=== PATIENT | female | born 1980 | race Caucasian/White ===

== ENCOUNTER 2019-06-06 19:43 | Inpatient (IN) | payer MEDICAID ==
--- NOTE | 2019-06-06 20:11 | PDOC.FPRHP ---
- History of Present Illness Chief Complaint: Fever and malaise History of Present Illness: Ms. Pena is a 38 yoF who presents to the ED after the intermediate ([facility]) noted she had a fever this afternoon and sent her to the ED in [place]. Upon arrival, there was concern for sepsis and she was transferred to [place] ED. Her symptoms started this morning with general malaise. At lunch she states she vomited once. She denies other symptoms. She has noted that the wound on her LLE has been draining more than usual. The wound is chronic in nature, was last debrided in August. During that hospitalization she became septic and was intubated. As a result, and due to debility, she has been living in a intermediate since then. She states she is ambulatory. ED Course: [place]: Vancomycin 2g, K-dur 40meq, Zosyn 4.5g, 2L NS, Zofran 4mg, Tylenol 1000mg - Allergies/Adverse Reactions Allergies Allergy/AdvReac Type Severity Reaction Status Date / Time No Known Allergies Allergy Verified 06/07/19 01:01 - Home Medications Medication Instructions Recorded Confirmed Type Amlodipine [Norvasc] 5 mg PO DAILY 06/07/19 06/07/19 History Apixaban [Eliquis] 5 mg PO BID 06/07/19 06/07/19 History Carvedilol [Coreg] 25 mg PO BID 06/07/19 06/07/19 History Escitalopram Oxalate [Lexapro] 20 mg PO DAILY 06/07/19 06/07/19 History Potassium Chloride [K-Dur] 20 meq PO BID 06/07/19 06/07/19 History Torsemide 50 mg PO HS 06/07/19 06/07/19 History Torsemide 100 mg PO QAM 06/07/19 06/07/19 History - History PMHx: H/o dvt CHF HTN HLD Morbid obesity Chronic LLE wound PSHx: Surgical debridement of LLE FHx: Non-contributory Social: Denies alcohol, tobacco, or illicit drug use. - Review of Systems General: reports: fever/chills, weight/appetite/sleep changes. denies: night sweats, fatigue Eyes: denies: eye pain ENT: denies: nasal congestion, rhinorrhea Respiratory: denies: cough, congestion, shortness of breath Cardiovascular: denies: chest pain, palpitation, edema Gastrointestinal: reports: nausea, vomiting. denies: diarrhea, constipation Genitourinary: denies: incontinence, dysuria, polyuria Skin: reports: lesions. denies: rashes Musculoskeletal: denies: pain, tenderness Neurological: denies: numbness, syncope, weakness - Vital signs BP: [] HR: [] RR: [] Tmax: [] Pox: []% on [] Wt: [] - Physical Exam Constitutional: NAD, awake, alert and oriented HEENT: normocephalic and atraumatic, PERRLA, EOMI, conjunctiva clear, grossly normal vision, grossly normal hearing, MMM Neck: supple, trachea midline Heart: RRR, normal S1/S2, no murmurs/rubs/gallops Lungs: CTAB, no respiratory distress, good air movement Abdomen: soft, non-tender, bowel sounds present Musculoskeletal: normal structure, normal tone Neurological: no focal deficit, CN II-XII intact Skin: capillary refill <2 seconds -Skin: LLE wound Heme/Lymphatic: no unusual bruising or bleeding, no purpura, no petechia Psychiatric: normal mood and affect, good judgment and insight, intact recent and remote memory FMR H&P: Results - Labs Lab results: Laboratory Tests 06/06/19 06/06/19 06/06/19 15:46 15:46 15:46 WBC 5.8 RBC 4.67 Hgb 12.7 Hct 41.1 Plt Count 144 Sodium 140 Potassium 3.0 L Chloride 97 L Carbon Dioxide 25 Anion Gap 21 H BUN 24 H Creatinine 1.99 H Lactic Acid 3.8 H 06/06/19 06/06/19 06/06/19 18:20 20:40 23:14 WBC RBC Hgb Hct Plt Count Sodium Potassium Chloride Carbon Dioxide Anion Gap BUN Creatinine Lactic Acid 2.6 H 2.3 H 1.7 Laboratory Tests 06/06/19 15:39 Urine Nitrite Negative Ur Leukocyte Esterase Negative Urine WBC 0-3 Urine Bacteria Rare-Few - Radiology Interpretation Chest x-ray Status: report reviewed by me (No acute cardiopulmonary process) FMR H&P: A/P - Plan Sepsis 2/2 LLE cellulitis - IV Vancomycin and Zosyn - s/p 2L NS. LR @ 175 ml/hr tonight. Consider slowing down tomorrow if clinically improved. - BP and VSS, sepsis without septic shock. - wound care consulted CHF - Hold diuretic today due to sepsis. - Watch fluids closely, consider restarting diuretics tomorrow if clinically improved. HTN, HLD - continue home medications H/o dvt - Continue eliquis for DVT prophylaxis Disposition/LOS: Dispo: Stable VTE: Eliquis IVF: LR @ 175 Code: Full FMR H&P: Upper Level - Plan Date/Time: 06/06/192004 PCP: Angie HPI: This is a 38 yo F who comes in from [facility] with chief complaint of vomiting, she was found to be septic likely from LLE cellulitus. Vomiting started earlier today per intermediate staff. She was admitted to intermediate for continued care of LLE cellulitus. She states she has no pain at this time. She thinks the LLE has had more drainage for a few days now. REVIEW OF SYSTEMS: Gen: + fever, no chills, or sweats Neuro: no numbness/tingling, no weakness, denies headache Eyes: no visual changes ENT: no hearing changes, no sore throat, no runny nose Resp: no cough, no SOB, no wheeze Card: denies chest pain, no palpitations GI: no N/V/D, no abdominal pain : no dysuria, no hematuria MSK: no myalgias, no joint pain/stiffness Skin: no rash, no erythema PHYSICAL EXAMINATION: General: NAD, alert and oriented x3, flat affect HEENT: PERRLA, EOMI, normal sclera, oropharynx without erythema or exudate Neck: Supple. Full ROM. Heart/Cardiovascular System: RRR, Cap refill < 3 seconds, no rub, no murmur Lungs/Respiratory System: clear to auscultation bilaterally. No increased work of breathing. Room air. Abdomen/Gastro-Intestinal System: no abdominal tenderness, normal bowel sounds, no masses, no organomegaly Extremities: Warm extremities. No cyanosis or edema. Neuro: No gross deficits appreciated. CN 2-12 grossly intact Psychiatry: Awake, Alert and cooperative with exam Skin: Mild oozing from LLE wound, has been previously debrided, erythema surrounding Musculoskeletal: Full ROM A/P: # Sepsis 2/2 LLE cellulitis - WBC 5.8, Tmax 103.8, BP 104/75, Pmax 117, pulse improved after fluid resuscitation - LA 3.8 -> 2.6 - start vanc, zosyn, cultures taken - wound care # CHF not in exacerbation - Hold torsemide, caution with fluid resuscitation - Initial rate at 175ml 2/2 sepsis, once lactic improved fluids stopped # NOHEMI - Cr 1.99, no labs available for comparison # Bipolar - Flat affect, lives at intermediate apparently for care of LLE wound # HTN, HLD, Hx of DVT - home meds Fluids: as above Code status: full PPx: eliquis Dispo: 1-2 days
[2019-06-06] MEDS ORDERED: Ondansetron ODT 4 MG TAB PO PRN (20:25)
[2019-06-06] MEDS ORDERED: SODIUM CHLORIDE 0.9% IVPB SCH (21:00)
[2019-06-06] MEDS ORDERED: VANCOMYCIN HCL IVPB SCH (21:00)
[2019-06-06 23:39] LABS: Lactic Acid 1.7 mmol/L (0.5-2.2)
[2019-06-07] MEDS ORDERED: Piperacillin/Tazobactam 3.375 GM in Sodium Chloride 0.9% 100 ML IVPB SCH (00:45)
[2019-06-07] MEDS ORDERED: Vancomycin HCl 1 GM in Premix Bag 1 BAG IVPB SCH (00:45)
[2019-06-07 01:00] VITALS: BMI 100.3
[2019-06-07] MEDS ORDERED: Nystatin Powder 15 GM BOT TOP PRN (02:09)
[2019-06-07] MEDS: Acetaminophen 325 MG TAB PO PRN (02:17)
[2019-06-07] MEDS: Piperacillin/Tazobactam 2.25 GM in Sodium Chloride 0.9% 100 ML IVPB SCH ×4 (02:17→20:10)
[2019-06-07] MEDS: Lactated Ringer's 1,000 ML IV SCH ×4 (02:18→09:03)
[2019-06-07] MEDS ORDERED: Lactated Ringer's 1,000 ML IV SCH ×2 (04:45→08:45)
[2019-06-07 06:20] LABS: Anion Gap 12 mmol/L (10-20); BUN (Urea Nitrogen) 29 mg/dL (7.0-18.7); Calc. Creatinine Clearance 76 mL/min (70-130); Calcium 8.5 mg/dL (7.8-10.44); Carbon Dioxide 26 mmol/L (22-29); Chloride 100 mmol/L (98-107); Estimated GFR-MDRD 22; Glucose 106 mg/dL (70-105); Sodium 135 mmol/L (136-145)
[2019-06-07 06:22] LABS: Anisocytosis SLIGHT = 6-15 cells (100X) (0-5/hpf); Band 30 % (5-11); Hemoglobin 10.4 g/dL (12.0-16.0); Lymphocytes 8 % (21-51); MDiff Complete? YES; Mean Corpuscular HGB CONC 33.2 g/dL (32.0-36.0); Mean Corpuscular Hemoglobin 28.7 pg (27.0-31.0); Mean Corpuscular Volume 86.5 fL (78.0-98.0); Mean Platelet Volume 10.2 fL (7.4-10.4); Monocytes 3 % (0-10); Neutrophil 59 % (42-75); Platelet Count 114 thou/uL (130-400); Platelet Morphology Comment Appears Adequate; RBC Distribution Width 15.8 % (11.5-14.5); Red Blood Cell (RBC) Count 3.64 mill/uL (4.20-5.40); White Blood Cell (WBC) Count 14.8 thou/uL (4.8-10.8)
[2019-06-07 06:25] LABS: Potassium 2.8 mmol/L (3.5-5.1)
--- NOTE | 2019-06-07 06:28 | PDOC.FM ---
- Subjective Subjective: Pt is sleeping w/ BIPAP on this AM. She usually requires BIPAP at night. Upon waking, pt denied pain. Reports she takes lexapro for depression. Says she ambulates normally without wheelchair or walker. Has wet towel on head for fevers she had overnight. - Objective MAR Reviewed: Yes Vital Signs & Weight: Vital Signs (12 hours) Temp Pulse Resp BP BP Pulse Ox 06/07/19 05:38 101.3 F H 06/07/19 04:00 102.6 F H 92 20 108/70 97 06/07/19 01:55 98 06/07/19 00:59 101.2 F H 99 20 103/69 96 Weight Weight 155.5 kg Result Diagrams: 06/07/19 05:39 06/07/19 05:39 Phys Exam - Physical Examination Constitutional: NAD difficult to auscultate while pt on BIPAP Cardiovascular: RRR, no significant murmur, no rub Gastrointestinal: soft, non-tender (obese) Musculoskeletal: edema present (1+ pitting on RLE, nonpitting edema, erythema, and swelling of LLE. Wound wrapped and not disturbed. Wound photos reviewed. ) Neurological: non-focal Dx/Plan (1) Left leg cellulitis Code(s): L03.116 - CELLULITIS OF LEFT LOWER LIMB Status: Acute (2) History of DVT (deep vein thrombosis) Code(s): Z86.718 - PERSONAL HISTORY OF OTHER VENOUS THROMBOSIS AND EMBOLISM Status: Acute (3) CHF (congestive heart failure) Code(s): I50.9 - HEART FAILURE, UNSPECIFIED Status: Acute (4) HTN (hypertension) Code(s): I10 - ESSENTIAL (PRIMARY) HYPERTENSION Status: Acute (5) Hyperlipidemia Code(s): E78.5 - HYPERLIPIDEMIA, UNSPECIFIED Status: Acute (6) Sepsis Code(s): A41.9 - SEPSIS, UNSPECIFIED ORGANISM Status: Acute (7) Morbid obesity Code(s): E66.01 - MORBID (SEVERE) OBESITY DUE TO EXCESS CALORIES Status: Acute (8) group home resident Code(s): Z59.3 - PROBLEMS RELATED TO LIVING IN RESIDENTIAL INSTITUTION Status : Acute - Plan Plan: 38-year-old female who has been in group home since August when she had debridement of LLE chronic wound, admitted for: Sepsis 2/2 LLE cellulitis - no septic shock, fluid resuscitation w/ 2L and fluids w/ 175 mL/hr initially - lactic acid downtrended - start vanc, zosyn (day 1 today) cultures pending - wound care consulted Hypokalemia Hypomagnesemia - monitoring, will replete orally Normocytic Anemia - Hgb 10.4. - Order anemia studies: iron, ferritin, RBC folate, B12, TIBC, smear CHF, not in exacerbation -Held torsemide, caution with fluid resuscitation -Initial rate at 175ml 2/2 sepsis, once lactic improved, fluids were stopped. -will continue to assess pt clinically because more fluid resuscitation is needed. Due to her weight, used ideal body weight for maintenance fluid rate. MIVF is 85 mL/hr, so will restart LR at 100mL/hr and continue to monitor closely. NOHEMI vs CKD - Cr 1.99, no labs available for comparison - Cr increased to 2.49 this AM. Will restart fluids and monitor fluid status closely. Depression -Flat affect, pt takes lexapro. She is not bipolar. Lives at senior living for care of LLE wound. Will assess needs and determine where to dispo pt. -Case mgmt consulted HTN HLD Hx of DVT - home meds may be restarted. Morbid obesity - PT/OT consulted. Fluids: LR at 100 mL/hr Code status: full PPx: lacy Dispo: inpatient medical.
[2019-06-07] MEDS ORDERED: Potassium Chloride 40 MEQ in Premix Bag 1 BAG IVPB SCH (06:30)
[2019-06-07 08:03] LABS: Magnesium 1.4 mg/dL (1.6-2.6); Phosphorus 3.9 mg/dL (2.3-4.7)
[2019-06-07] MEDS: Potassium Chloride 20 MEQ in Premix Bag 1 BAG IVPB SCH ×2 (08:22→15:03)
[2019-06-07] MEDS: Carvedilol 25 MG TAB PO SCH ×2 (08:25→20:11)
[2019-06-07] MEDS: Amlodipine 5 MG TAB PO SCH (08:25)
[2019-06-07] MEDS: Apixaban 5 MG TAB PO SCH ×2 (08:25→20:10)
[2019-06-07] MEDS: Potassium Chloride 20 MEQ TAB PO SCH ×2 (08:25→20:10)
[2019-06-07] MEDS: Escitalopram Oxalate 20 mg Tablet PO SCH (08:25)
[2019-06-07] MEDS ORDERED: Enoxaparin Sodium 40 MG/0.4 ML SYRINGE SC SCH (09:00)
[2019-06-07] MEDS ORDERED: FLU VACC QS2019-20(6MOS UP)/PF 60 MCG/0.5 ML SYRINGE IM ONE (09:00)
[2019-06-07 10:35] LABS: Bacteria/HPF 4+ HPF (None Seen); Bilirubin Negative (Negative); Blood, Urine Negative (Negative); Clarity Turbid (Clear); Glucose, Urine (Dipstick) Normal (Negative); Leukocyte 75 Leu/uL (Negative); Nitrite Negative (Negative); Protein, Urine (Dipstick) 10 mg/dL (Neg-Trace); RBC/HPF 0-3 HPF (0-3); Squamous Epithelial 0-3 HPF (0-3); Urobilinogen Normal mg/dL (Less than 2)
[2019-06-07 10:52] LABS: Hemoglobin 10.9 g/dL (12.0-16.0); Mean Corpuscular HGB CONC 33.1 g/dL (32.0-36.0); Mean Corpuscular Hemoglobin 28.7 pg (27.0-31.0); Mean Corpuscular Volume 86.8 fL (78.0-98.0); Mean Platelet Volume 10.2 fL (7.4-10.4); Platelet Count 110 thou/uL (130-400); RBC Distribution Width 15.9 % (11.5-14.5); Red Blood Cell (RBC) Count 3.78 mill/uL (4.20-5.40); White Blood Cell (WBC) Count 12.9 thou/uL (4.8-10.8)
[2019-06-07] MEDS ORDERED: Vancomycin 1.5 GRAM/300 ML BAG 1.5 GM in Premix Bag 1 BAG IVPB SCH (11:00)
[2019-06-07 11:07] LABS: Potassium 3.5 mmol/L (3.5-5.1)
[2019-06-07 11:13] LABS: Iron Less than 8 ug/dL (50-170); Iron Binding Capacity, Total 234 mcg/dL (265-497)
--- NOTE | 2019-06-07 11:15 | ULT ---
SOFT TISSUE ULTRASOUND: HISTORY: Cellulitis. Evaluate for abscess. COMPARISON: None. TECHNIQUE: Targeted sonographic imaging of the left calf was performed. Static images were reviewed. Atheroscler otic static images, real-time imaging was performed in the presence of the radiologist. FINDINGS: Static and real-time images demonstrate soft tissue edema. This fluid tracking along fascial planes w ithout definite well-contained collection to suggest abscess. IMPRESSION: Soft tissue swelling and edema. There is fluid without a well-contained abscess. Transcribed Date/Time: 06/07/2019 11:32 AM
[2019-06-07 11:19] LABS: Band 39 % (5-11); Eosinophils 1 % (0-10); Lymphocytes 6 % (21-51); MDiff Complete? YES; Metamyelocyte 4 % (0-0); Monocytes 6 % (0-10); Neutrophil 43 % (42-75); Platelet Morphology Comment Appears Decreased; Polychromasia SLIGHT = 2-3 cells (100X) (0-2/hpf)
[2019-06-07 11:40] LABS: Ferritin 119.9 ng/mL (10-291)
--- NOTE | 2019-06-07 11:47 | RAD ---
LEFT LEG 2 VIEWS: Date: 06/07/19 HISTORY: Cellulitis, left leg pain. FINDINGS: The left tibia and fibula are intact. No bony destruction of periosteal reaction identified. There ar e degenerative changes in the knee joint and posterior and plantar spurs in the calcaneus. IMPRESSION: No evidence of osteomyelitis in the left tibia or fibula. POS: TPC
[2019-06-07] MEDS: Magnesium Oxide 400 MG TAB PO SCH ×2 (11:58→20:10)
[2019-06-07] MEDS ORDERED: Iron, Sodium Ferric Gluconate 250 MG in Sodium Chloride 0.9% 100 ML IVPB SCH (15:00)
[2019-06-07 15:23] LABS: HBSAB Concentration 1.98 mIU/mL; HBSAg Index 0.17 S/CO (0-0.99); Hep B Core Total Ab Non-Reactive (NonReactive); Hep B Core Total Index 0.19 S/CO (0-0.79); Hep B Surf AB Non-Reactive (NonReactive); Hep B Surf Ag Non-Reactive S/CO (NonReactive); Syphilis Antibody Nonreactive (Nonreactive); Syphilis Antibody Index 0.11 S/CO (<1.00 Non-Reactive)
[2019-06-07 15:24] LABS: Hep C IgG Ab Non-Reactive (NonReactive); Hep C Index 0.09 S/CO (0-0.79)
[2019-06-07 15:35] LABS: HIV (1/2) Antibody/Antigen Non-Reactive (NonReactive); HIV 1/2 INDEX 0.17 S/CO (<1.00)
--- NOTE | 2019-06-07 17:13 | PRG ---
DATE OF SERVICE: 06/07/2019 Ms. Cho is looking and feeling better. Given that this is her second episode of sepsis related to what appears to be a superficial cellulitis, we should consider the possibility of immunosuppression and we will check HIV and hep C. She is not diabetic. If this is unrevealing, I would consider the possibility of endocarditis or osteomyelitis. Job ID: [id number]
[2019-06-07] MEDS: Ferrous Sulfate 325 MG TAB PO SCH (17:33)
[2019-06-07 19:20] LABS: BHCG - Serum Negative (NEGATIVE); Pregs Control Background? CLEAR/WHITE (CLR/WHITE); Pregs Control Bar Appear? YES (CONTROL BAR)
[2019-06-07 19:23] LABS: Anion Gap 9 mmol/L (10-20); BUN (Urea Nitrogen) 32 mg/dL (7.0-18.7); Calc. Creatinine Clearance 70 mL/min (70-130); Calcium 8.7 mg/dL (7.8-10.44); Carbon Dioxide 30 mmol/L (22-29); Chloride 99 mmol/L (98-107); Estimated GFR-MDRD 20; Glucose 90 mg/dL (70-105); Potassium 3.3 mmol/L (3.5-5.1); Sodium 135 mmol/L (136-145)
[2019-06-07] MEDS ORDERED: Dexamethasone 1 MG TAB PO SCH ×2 (23:30)
[2019-06-08] MEDS: Lactated Ringer's 1,000 ML IV SCH ×3 (01:53→13:40)
[2019-06-08] MEDS: Piperacillin/Tazobactam 2.25 GM in Sodium Chloride 0.9% 100 ML IVPB SCH (01:53)
--- NOTE | 2019-06-08 06:14 | PDOC.FM ---
- Subjective Subjective: Pt reports no pain or SOB this AM. Feels warm, slept well. Denies family history of autoimmune disorders like lupus. Reports her mother should be here tonight. Denies history of kidney problems. Mother had kidney stones. - Objective MAR Reviewed: Yes Vital Signs & Weight: Vital Signs (12 hours) Temp Pulse Resp BP Pulse Ox 06/08/19 04:00 99.6 F 69 22 H 124/77 92 L 06/08/19 00:41 100.4 F H 89 22 H 111/63 96 06/07/19 21:00 100.2 F H 87 22 H 104/54 L 93 L Weight Admit Weight 155.5 kg Weight 155.5 kg I&O: 06/06/19 06/07/19 06/08/19 06:59 06:59 06:59 Intake Total 1330 Output Total 500 Balance 830 Result Diagrams: 06/08/19 06:56 06/08/19 06:56 Phys Exam - Physical Examination Constitutional: NAD HEENT: sclera anicteric Respiratory: no wheezing, clear to auscultation bilateral (On 2L O2 as she is waking up and just removed BiPAP) Cardiovascular: RRR, no significant murmur, no rub Gastrointestinal: soft, non-tender Musculoskeletal: pulses present, edema present (1+ pitting on R. Bandage over LLE wound not removed. Wound care following) Neurological: non-focal Psychiatric: A&O x 3 (affect constricted.) Dx/Plan (1) Left leg cellulitis Code(s): L03.116 - CELLULITIS OF LEFT LOWER LIMB Status: Acute (2) History of DVT (deep vein thrombosis) Code(s): Z86.718 - PERSONAL HISTORY OF OTHER VENOUS THROMBOSIS AND EMBOLISM Status: Acute (3) CHF (congestive heart failure) Code(s): I50.9 - HEART FAILURE, UNSPECIFIED Status: Acute (4) HTN (hypertension) Code(s): I10 - ESSENTIAL (PRIMARY) HYPERTENSION Status: Acute (5) Hyperlipidemia Code(s): E78.5 - HYPERLIPIDEMIA, UNSPECIFIED Status: Acute (6) Sepsis Code(s): A41.9 - SEPSIS, UNSPECIFIED ORGANISM Status: Acute (7) Morbid obesity Code(s): E66.01 - MORBID (SEVERE) OBESITY DUE TO EXCESS CALORIES Status: Acute (8) shelter resident Code(s): Z59.3 - PROBLEMS RELATED TO LIVING IN RESIDENTIAL INSTITUTION Status : Acute - Plan Plan: 38-year-old female who has been in shelter since August when she had debridement of LLE chronic wound, admitted for: Sepsis 2/2 LLE cellulitis Klebsiella Pneumoniae Bacteremia - no septic shock, fluid resuscitation w/ 2L and fluids w/ 175 mL/hr initially - lactic acid downtrended - start vanc, zosyn given x1. - zosyn 3.375g today since CrCl ~70. - wound care consulted, following - Blood cultures 2/2 positive for above organism - Imaging studies LLE xray, LLE sono not significant for abscess or osteomyelitis. However, could be early in disease course. - MRI vs 3-phase nuclear scan to be ordered pending renal function (per radiology) and obesity/if she will fit in MRI. - TTE difficult to assess but no significant thrombi seen. Consider TANA and ID consult. Hypokalemia Hypomagnesemia - monitoring, will replete orally Normocytic Anemia Iron deficiency - Hgb decreased today to 9.3 - Iron replaced IV and PO ferrous sulfate scheduled BID. CHF, not in exacerbation -Held torsemide, caution with fluid resuscitation -Initial rate at 175ml 2/2 sepsis, once lactic improved, fluids were stopped. -will continue to assess pt clinically because more fluid resuscitation is needed. Due to her weight, used ideal body weight for maintenance fluid rate. MIVF is 85 mL/hr, so will restart LR at 100mL/hr and continue to monitor closely. NOHEMI vs CKD vs ATN - Cr 1.99, no labs available for comparison - Cr increased to 2.71 this AM. Monitor fluid status closely. - Urine studies ordered to evaluate for etiology of kidney insult. Depression -Constricted affect, pt takes lexapro. She is not bipolar. Lives at alf for care of LLE wound. Will assess needs and determine where to dispo pt. -Case mgmt consulted HTN HLD Hx of DVT - home meds may be restarted. Morbid obesity - PT/OT consulted. Fluids: LR at 100 mL/hr Code status: full PPx: eliquis Dispo: inpatient medical. Addendum - Attending - Attending Attestation Date/Time: 06/08/19 2790 I personally evaluated the patient and discussed the management with Dr. Ballard. I agree with the History, Examination, Assessment and Plan documented above with any addition or exceptions noted below. Patient here for multiple issues. She has been found to be bacteremic from Klebsiella, likely from her lower extremity cellulitis. She has had some low grade temps but fever curve downtrending. She will continue workup for possible osteomyelitis. She will need extermination supervisor antibiotic therapy on discharge. Her renal function continues to be poor, will obtain urine studies as well as renal ultrasound to further characterize. Wean from O2 as tolerated. Will likely need ID on board but will continue abx and await sensitivities and complete our workup first.
[2019-06-08 07:40] LABS: #Eosinphils 0.1 thou/uL (0.0-0.7); #Lymphocytes 1.1 thou/uL (1.20-3.40); #Monocytes 0.6 thou/uL (0.11-0.59); #Neutrophils 8.9 thou/uL (1.40-6.50); %Basophils 0.5 % (0.0-1.0); %Eosinophils 0.6 % (0.0-10.0); %Lymphocytes 10.1 % (21.0-51.0); %Monocytes 5.2 % (0.0-10.0); %Neutrophils 83.6 % (42.0-75.0); Anion Gap 12 mmol/L (10-20); Anisocytosis SLIGHT = 6-15 cells (100X) (0-5/hpf); BUN (Urea Nitrogen) 30 mg/dL (7.0-18.7); Calc. Creatinine Clearance 70 mL/min (70-130); Carbon Dioxide 25 mmol/L (22-29); Chloride 101 mmol/L (98-107); Estimated GFR-MDRD 20; Glucose 106 mg/dL (70-105); Hemoglobin 9.3 g/dL (12.0-16.0); MDiff Complete? YES; Mean Corpuscular HGB CONC 32.9 g/dL (32.0-36.0); Mean Corpuscular Hemoglobin 28.8 pg (27.0-31.0); Mean Corpuscular Volume 87.6 fL (78.0-98.0); Mean Platelet Volume 10.4 fL (7.4-10.4); Platelet Count 87 thou/uL (130-400); Platelet Morphology Comment Appears Decreased; Potassium 3.4 mmol/L (3.5-5.1); RBC Distribution Width 15.6 % (11.5-14.5); Red Blood Cell (RBC) Count 3.23 mill/uL (4.20-5.40); Sodium 135 mmol/L (136-145); White Blood Cell (WBC) Count 10.6 thou/uL (4.8-10.8)
[2019-06-08] MEDS: Amlodipine 5 MG TAB PO SCH (08:17)
[2019-06-08] MEDS: Carvedilol 25 MG TAB PO SCH ×2 (08:18→20:00)
[2019-06-08] MEDS: Potassium Chloride 20 MEQ TAB PO SCH ×2 (08:18→20:00)
[2019-06-08] MEDS: Magnesium Oxide 400 MG TAB PO SCH (08:18)
[2019-06-08] MEDS: Apixaban 5 MG TAB PO SCH ×2 (08:18→20:00)
[2019-06-08] MEDS: Ferrous Sulfate 325 MG TAB PO SCH ×2 (08:18→16:38)
[2019-06-08] MEDS: Piperacillin/Tazobactam 3.375 GM in Sodium Chloride 0.9% 100 ML IVPB SCH ×3 (08:19→20:00)
[2019-06-08] MEDS: Escitalopram Oxalate 20 mg Tablet PO SCH (08:23)
[2019-06-08 12:23] LABS: Creatinine, Urine 82.88 mg/dL (47-110)
--- NOTE | 2019-06-08 15:53 | NM ---
NM Bone Scan Three Phase History: Cellulitis. Evaluate for abscess. Comparison: Radiograph prior day. Ultrasound prior day. Findings: Three-phase scan of the lower extremities was performed after the intravenous administratio n technetium 99m HDP 31.8 mCi. There is increased flow and blood pool to the posterior soft tissues of the left lower extremity. On the delayed phase there is no abnormal osseous uptake to suggest osteomyelitis. Impression: Cellulitis without osteomyelitis of the left lower extremity posterior soft tissues.
--- NOTE | 2019-06-08 16:35 | ULT ---
US Renal Bilateral STANDARD History: Increasing creatinine Comparison: None. Findings: Real-time grayscale and color evaluation of the kidneys and urinary bladder was performed. Right kidney measures 10.8 x 6.2 x 5 cm and the left kidney measures 13.1 x 8.2 x 6.1 cm. The kidneys without mass, hydronephrosis, or abnormal calcifications. Urinary bladder is unremarkable. Impression: No evidence for obstructive uropathy.
[2019-06-09] MEDS: Piperacillin/Tazobactam 3.375 GM in Sodium Chloride 0.9% 100 ML IVPB SCH ×4 (01:31→20:48)
[2019-06-09] MEDS: Lactated Ringer's 1,000 ML IV SCH (05:55)
--- NOTE | 2019-06-09 06:11 | PDOC.FM ---
- Subjective Subjective: Pt mother is present and provides more history of chronic conditions. In August with sepsis, had multi-organ failure and required HD x5 weeks. Was moved to [facility] 2 weeks ago, prior to that was in [facility] in [place]. Hospital she was last admitted at [facility] in [place]. Has had sepsis 3 times this year from cellulitis. Pt reports she has urinated 7 times today, she is taking oral fluids well. Denies pain, leg does not bother her when she ambulates. Also reports fever blister on her lip today. Has history of oral HSV. Denies genital HSV. Has had bad outbreaks of oral HSV during last sepsis episode. - Objective MAR Reviewed: Yes Vital Signs & Weight: Vital Signs (12 hours) Temp Pulse Resp BP Pulse Ox 06/08/19 21:00 79 17 95 06/08/19 20:34 72 18 95 06/08/19 20:00 98.9 F 76 22 H 119/70 92 L 06/08/19 19:41 95 Weight Admit Weight 155.5 kg Weight 155.5 kg I&O: 06/07/19 06/08/19 06/09/19 06:59 06:59 06:59 Intake Total 1330 1680 Output Total 500 Balance 830 1680 Result Diagrams: 06/08/19 06:56 06/08/19 09:52 Phys Exam - Physical Examination Constitutional: NAD Respiratory: no wheezing, clear to auscultation bilateral Cardiovascular: RRR, no significant murmur Gastrointestinal: soft, no distention Musculoskeletal: pulses present (LLE erythema appears improved.) Psychiatric: A&O x 3 (blunted affect) Dx/Plan (1) Left leg cellulitis Code(s): L03.116 - CELLULITIS OF LEFT LOWER LIMB Status: Acute (2) History of DVT (deep vein thrombosis) Code(s): Z86.718 - PERSONAL HISTORY OF OTHER VENOUS THROMBOSIS AND EMBOLISM Status: Acute (3) CHF (congestive heart failure) Code(s): I50.9 - HEART FAILURE, UNSPECIFIED Status: Acute (4) HTN (hypertension) Code(s): I10 - ESSENTIAL (PRIMARY) HYPERTENSION Status: Acute (5) Hyperlipidemia Code(s): E78.5 - HYPERLIPIDEMIA, UNSPECIFIED Status: Acute (6) Sepsis Code(s): A41.9 - SEPSIS, UNSPECIFIED ORGANISM Status: Acute (7) Morbid obesity Code(s): E66.01 - MORBID (SEVERE) OBESITY DUE TO EXCESS CALORIES Status: Acute (8) shelter resident Code(s): Z59.3 - PROBLEMS RELATED TO LIVING IN RESIDENTIAL INSTITUTION Status : Acute - Plan Plan: 38-year-old female who has been in shelter since August when she had debridement of LLE chronic wound, admitted for: Sepsis 2/2 LLE cellulitis without osteomyelitis Klebsiella Pneumoniae Bacteremia, steel-sensitive - no septic shock, fluid resuscitation w/ 2L and fluids w/ 175 mL/hr initially - start vanc, zosyn given x1. Vanc discontinued as cultures resulted in Kleb Pneumo 2/2 + in blood. Sensitivities have resulted: steel-sensitive. - zosyn 3.375g today since CrCl ~70. - wound care consulted, following - Imaging studies LLE xray, LLE sono not significant for abscess or osteomyelitis. - Osteomyelitis effectively ruled out with 3-phase nuclear scan showing no uptake of contrast into bone. - TTE difficult to assess but no significant thrombi seen. Consider TANA and ID consult on Monday. - Will narrow antibiotic spectrum today. Risk factors for patient are that she has been living in a [facility] since August. Hypokalemia, acute on chronic Hypomagnesemia - monitoring, will replete orally - pt takes potassium at home Normocytic Anemia Iron deficiency - Hgb decreased today to 9.3. Iron infusion 06/08. - PO ferrous sulfate scheduled BID. CHF, not in exacerbation -Held torsemide, caution with fluid resuscitation -will continue to assess pt clinically because more fluid resuscitation is needed. Due to her weight, used ideal body weight for maintenance fluid rate. MIVF is 85 mL/hr, so LR at 100mL/hr and continue to monitor closely. - Pt coil connector repairer is Dr. Doyle, [place] [facility]. Was told she had heart failure around same time of sepsis episodes in August. NOHEMI vs CKD vs ATN, likely intrinsic process. - Cr 1.99, no labs available for comparison - could very well be CKD based on mother's provided history of pt. Will call prior nursing homes/hospitals to attempt to get Cr baseline. - Cr increased to 2.73. Monitor fluid status closely. Decrease fluids to 50mL/ hr and encourage oral hydration. - Renal US negative for hydronephrosis or obstructive uropathy. No renal masses seen. - FeNa 0.9% which would suggest prerenal etiology, however this does not fit with the clinical picture of the pt who has had continued Creatinine rise despite fluid resuscitation. Unlikely post-renal or obstructive since renal US was normal. I believe pt has intrinsic renal process. - We may consider nephrology consult. HSV, oral - fever blister on upper lip. Denies history of genital herpes. Does not take antiviral for herpes. Depression -Constricted affect, pt takes lexapro. Lives at [facility] for care of LLE wound. Will assess needs and determine where to dispo pt. -Case mgmt consulted HTN HLD Hx of DVT - home meds may be restarted. Morbid obesity - PT/OT consulted. - Test for Swengel's disease w/ dexamethasone suppression test is inconclusive at this time. Pt cortisol serum in AM after meds was 2.70 mcg/dL. It is recommended to use 1.80 as the cutoff of upper limit of normal; however, pt may have a physiologic hypercortisolism at this time since 1) she is morbidly obese , and 2) she is under an acute illness requiring hospitalization. Testing would need to be repeated outpatient when pt is feeling better. She may still have some sort of autoimmune issue contributing to her sepsis from her LLE wound. Fluids: LR at 100 mL/hr Code status: full PPx: eliquis Dispo: inpatient medical. Addendum - Attending - Attending Attestation Date/Time: 06/09/19 2060 I personally evaluated the patient and discussed the management with Dr. Ballard. I agree with the History, Examination, Assessment and Plan documented above with any addition or exceptions noted below. Patient reports feeling well this morning. She continues on treatment for cellulitis and klebsiella bacteremia that we believe is caused from her chronic cellulitis. She will need predatory animal exterminator abx. Continue Zosyn for now. Wound care as needed. We are awaiting her renal function studies today. After speaking with her mother, this may more represent a chronic renal disease as she was previously on HD due to MODS awhile back. Will try to seek out old records to confirm if this creatinine elevation has been persistent. Renal U/S did not reveal major abnormalities yesterday. Stop IVF and allow for PO hydration. Wean O2 as needed. She is deconditioned and would benefit from continued therapy services.
[2019-06-09] MEDS: Escitalopram Oxalate 20 mg Tablet PO SCH (08:30)
[2019-06-09] MEDS: Carvedilol 25 MG TAB PO SCH ×2 (08:30→20:47)
[2019-06-09] MEDS: Ferrous Sulfate 325 MG TAB PO SCH ×2 (08:31→17:45)
[2019-06-09] MEDS: Apixaban 5 MG TAB PO SCH ×2 (08:31→20:48)
[2019-06-09] MEDS: Potassium Chloride 20 MEQ TAB PO SCH ×2 (08:31→20:47)
[2019-06-09] MEDS: Amlodipine 5 MG TAB PO SCH (08:31)
[2019-06-09 09:01] LABS: #Eosinphils 0.1 thou/uL (0.0-0.7); #Lymphocytes 1.3 thou/uL (1.20-3.40); #Monocytes 0.6 thou/uL (0.11-0.59); #Neutrophils 6.4 thou/uL (1.40-6.50); %Basophils 0.4 % (0.0-1.0); %Eosinophils 1.5 % (0.0-10.0); %Lymphocytes 15.9 % (21.0-51.0); %Monocytes 6.7 % (0.0-10.0); %Neutrophils 75.6 % (42.0-75.0); Hemoglobin 8.7 g/dL (12.0-16.0); Mean Corpuscular HGB CONC 31.9 g/dL (32.0-36.0); Mean Corpuscular Hemoglobin 28.4 pg (27.0-31.0); Mean Corpuscular Volume 88.9 fL (78.0-98.0); Mean Platelet Volume 10.7 fL (7.4-10.4); Platelet Count 89 thou/uL (130-400); RBC Distribution Width 15.7 % (11.5-14.5); Red Blood Cell (RBC) Count 3.07 mill/uL (4.20-5.40); White Blood Cell (WBC) Count 8.4 thou/uL (4.8-10.8)
[2019-06-09 09:09] LABS: ALT (SGPT) 12 U/L (8-55); AST (SGOT) 7 U/L (5-34); Alkaline Phosphatase 81 U/L (40-110); Anion Gap 10 mmol/L (10-20); BUN (Urea Nitrogen) 24 mg/dL (7.0-18.7); Bilirubin, Total 0.4 mg/dL (0.2-1.2); Calc. Creatinine Clearance 85 mL/min (70-130); Calcium 9.2 mg/dL (7.8-10.44); Carbon Dioxide 28 mmol/L (22-29); Chloride 105 mmol/L (98-107); Estimated GFR-MDRD 25; Globulin 3.7 g/dL (2.4-3.5); Glucose 105 mg/dL (70-105); Potassium 3.6 mmol/L (3.5-5.1); Protein, Total 6.7 g/dL (6.0-8.3); Sodium 139 mmol/L (136-145)
[2019-06-09] MEDS: Acyclovir 5% Oint. 15 GM TUBE TOP SCH ×2 (09:54→13:02)
[2019-06-09] MEDS: Acyclovir 400 mg Tablet PO SCH ×2 (14:28→20:56)
[2019-06-09] MEDS: diphenhydrAMINE 30 GM TUBE TOP PRN (14:29)
[2019-06-09] MEDS: Acetaminophen 325 MG TAB PO PRN (20:47)
[2019-06-10] MEDS: Piperacillin/Tazobactam 3.375 GM in Sodium Chloride 0.9% 100 ML IVPB SCH ×3 (02:04→13:33)
[2019-06-10] MEDS: diphenhydrAMINE 30 GM TUBE TOP PRN (05:11)
--- NOTE | 2019-06-10 06:23 | PDOC.FM ---
- Subjective Subjective: Pt had temp of 100.3 overnight. She is feeling the same today. Denies pain. Has required 2L O2 w/ PT for desats to 87% with walking. - Objective MAR Reviewed: Yes Vital Signs & Weight: Vital Signs (12 hours) Temp Pulse Resp BP Pulse Ox 06/10/19 02:13 70 29 H 06/09/19 23:34 98.3 F 70 24 H 93 L 06/09/19 20:00 100.3 F H 88 18 137/82 91 L 06/09/19 19:44 93 L Weight Admit Weight 155.5 kg Weight 155.5 kg I&O: 06/08/19 06/09/19 06/10/19 06:59 06:59 06:59 Intake Total 1330 1680 3120 Output Total 500 Balance 830 1680 3120 Result Diagrams: 06/10/19 06:26 06/10/19 06:26 Phys Exam - Physical Examination Constitutional: NAD (looks more bright eyed this morning and is sitting up) Respiratory: no wheezing, clear to auscultation bilateral Cardiovascular: RRR, no significant murmur Gastrointestinal: no distention (obese) Psychiatric: A&O x 3 (blunted affect) Dx/Plan (1) Left leg cellulitis Code(s): L03.116 - CELLULITIS OF LEFT LOWER LIMB Status: Acute (2) History of DVT (deep vein thrombosis) Code(s): Z86.718 - PERSONAL HISTORY OF OTHER VENOUS THROMBOSIS AND EMBOLISM Status: Acute (3) CHF (congestive heart failure) Code(s): I50.9 - HEART FAILURE, UNSPECIFIED Status: Acute (4) HTN (hypertension) Code(s): I10 - ESSENTIAL (PRIMARY) HYPERTENSION Status: Acute (5) Hyperlipidemia Code(s): E78.5 - HYPERLIPIDEMIA, UNSPECIFIED Status: Acute (6) Sepsis Code(s): A41.9 - SEPSIS, UNSPECIFIED ORGANISM Status: Acute (7) Morbid obesity Code(s): E66.01 - MORBID (SEVERE) OBESITY DUE TO EXCESS CALORIES Status: Acute (8) halfway resident Code(s): Z59.3 - PROBLEMS RELATED TO LIVING IN RESIDENTIAL INSTITUTION Status : Acute - Plan Plan: 38-year-old female who has been in halfway since August when she had debridement of LLE chronic wound, admitted for: Sepsis 2/2 LLE cellulitis without osteomyelitis Klebsiella Pneumoniae Bacteremia, steel-sensitive - no septic shock, fluid resuscitation w/ 2L and fluids w/ 175 mL/hr initially - start vanc, zosyn given x1. Vanc discontinued as cultures resulted in Kleb Pneumo 2/2 + in blood. Sensitivities have resulted: steel-sensitive. - zosyn 3.375g today since CrCl ~70. We are continuing zosyn during her hospital stay and will transition to PO abx upon discharge. - wound care consulted, following - Imaging studies LLE xray, LLE sono not significant for abscess or osteomyelitis. - Osteomyelitis effectively ruled out with 3-phase nuclear scan showing no uptake of contrast into bone. - TTE difficult to assess but no significant thrombi seen. Consider TANA and ID consult on Monday. Hypokalemia, acute on chronic Hypomagnesemia - monitoring, will replete orally - pt takes potassium at home Normocytic Anemia Iron deficiency - Hgb stabilizing. Iron infusion 06/08. - PO ferrous sulfate scheduled BID. 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 Doyle, [place] [facility]. Was told she had heart failure around same time of sepsis episodes in August. NOHEMI vs CKD vs ATN, likely intrinsic process. - could very well be CKD based on mother's provided history of pt. Will call prior nursing homes/hospitals to attempt to get Cr baseline. - stopped fluids, Creatinine is stabilizing ~2.20. Will submit release of records via fax to [facility] in [place] to see if we can get a baseline Creatinine. - Renal US negative for hydronephrosis or obstructive uropathy. No renal masses seen. - FeNa 0.9% which would suggest prerenal etiology, however this does not fit with the clinical picture of the pt who has had continued Creatinine rise despite fluid resuscitation. Unlikely post-renal or obstructive since renal US was normal. I believe pt has intrinsic renal process. HSV, oral - fever blister on upper lip. Denies history of genital herpes. Does not take antiviral for herpes. - acyclovir cream prescribed Depression -Constricted affect, pt takes lexapro. Lives at senior living for care of LLE wound. Will assess needs and determine where to dispo pt. -Case mgmt consulted HTN HLD Hx of DVT - home meds may be restarted. Morbid obesity - PT/OT consulted. - Test for Waycross's disease w/ dexamethasone suppression test is inconclusive at this time. Pt cortisol serum in AM after meds was 2.70 mcg/dL. It is recommended to use 1.80 as the cutoff of upper limit of normal; however, pt may have a physiologic hypercortisolism at this time since 1) she is morbidly obese , and 2) she is under an acute illness requiring hospitalization. Testing would need to be repeated outpatient when pt is feeling better. She may still have some sort of autoimmune issue contributing to her sepsis from her LLE wound. Fluids: LR at 100 mL/hr Code status: full PPx: lacy Dispo: inpatient medical. Addendum - Attending - Attending Attestation Date/Time: 06/10/19 6725 I personally evaluated the patient and discussed the management with Dr. Ballard. I agree with the History, Examination, Assessment and Plan documented above with any addition or exceptions noted below. Patient denies complaints. She is here for 3 active issues: 1. Klebsiella bacteremia. Continues on Zosyn. Consult ID due to history of recurrent sepsis. 2. Renal failure, now likely chronic due to her history of requiring HD in the past. Creatinine stable and somewhat downtrending. 3. Hypoxia- suspect atelectasis and deconditioning. Ambulate frequently and to chair. Awaiting specialist recs. Dispo back to senior living when stable.
[2019-06-10 06:49] LABS: #Basophils 0.1 thou/uL (0.0-0.2); #Eosinphils 0.2 thou/uL (0.0-0.7); #Lymphocytes 1.3 thou/uL (1.20-3.40); #Monocytes 0.7 thou/uL (0.11-0.59); %Eosinophils 2.5 % (0.0-10.0); %Lymphocytes 20.9 % (21.0-51.0); %Monocytes 11.2 % (0.0-10.0); %Neutrophils 64.4 % (42.0-75.0); Hemoglobin 8.6 g/dL (12.0-16.0); Mean Corpuscular HGB CONC 32.7 g/dL (32.0-36.0); Mean Corpuscular Hemoglobin 28.8 pg (27.0-31.0); Mean Corpuscular Volume 87.9 fL (78.0-98.0); Mean Platelet Volume 9.9 fL (7.4-10.4); Platelet Count 101 thou/uL (130-400); RBC Distribution Width 15.4 % (11.5-14.5); Red Blood Cell (RBC) Count 2.99 mill/uL (4.20-5.40); White Blood Cell (WBC) Count 6.1 thou/uL (4.8-10.8)
[2019-06-10 07:06] LABS: ALT (SGPT) 10 U/L (8-55); AST (SGOT) 8 U/L (5-34); Albumin 3.1 g/dL (3.5-5.0); Alkaline Phosphatase 84 U/L (40-110); Anion Gap 13 mmol/L (10-20); BUN (Urea Nitrogen) 19 mg/dL (7.0-18.7); Bilirubin, Total 0.5 mg/dL (0.2-1.2); Calc. Creatinine Clearance 87 mL/min (70-130); Calcium 9.1 mg/dL (7.8-10.44); Carbon Dioxide 24 mmol/L (22-29); Chloride 107 mmol/L (98-107); Estimated GFR-MDRD 25; Globulin 3.7 g/dL (2.4-3.5); Glucose 88 mg/dL (70-105); Protein, Total 6.8 g/dL (6.0-8.3); Sodium 140 mmol/L (136-145)
[2019-06-10] MEDS: Acyclovir 400 mg Tablet PO SCH ×3 (07:56→20:03)
[2019-06-10] MEDS: Escitalopram Oxalate 20 mg Tablet PO SCH (07:56)
[2019-06-10] MEDS: Carvedilol 25 MG TAB PO SCH ×2 (07:57→20:03)
[2019-06-10] MEDS: Potassium Chloride 20 MEQ TAB PO SCH ×2 (07:57→20:03)
[2019-06-10] MEDS: Apixaban 5 MG TAB PO SCH ×2 (07:57→20:03)
[2019-06-10] MEDS: Ferrous Sulfate 325 MG TAB PO SCH ×2 (07:58→17:32)
[2019-06-10] MEDS: Amlodipine 5 MG TAB PO SCH (08:01)
--- NOTE | 2019-06-10 13:55 | PQF ---
CLINICAL DOCUMENTATION IMPROVEMENT CLARIFICATION FORM: ICD-10 Updated PLEASE DO AN ADDENDUM TO THE PROGRESS NOTE WITH ANY DOCUMENTATION UPDATES OR ADDITIONS AND CARRY THROUGH TO DC SUMMARY. THANK YOU. DATE: 06/10/2019 ATTN: Dr. Ballard/ Attending Dr. Marquez Please exercise your independent, professional judgment in responding to the clarification form. Clinical indicators are provided on the bottom of this form for your review Please check appropriate box(s): HEART FAILURE: A. ACUITY [ ] Acute [ ] Acute on Chronic [X] Chronic B. TYPE [X] Systolic / HFrEF [ ] Diastolic / HFpEF [ ] Combined Systolic / Diastolic [ ] Other diagnosis [ ] Unable to determine In addition, please specify: Present on Admission (POA): [X] Yes [ ] No [ ] Unable to determine For continuity of documentation, please document condition throughout progress notes and discharge summary. Thank You. CLINICAL INDICATORS - SIGNS / SYMPTOMS / LABS / RESULTS AND LOCATION IN EMR 06/07 ECHO: Left Ventricle: The EF is difficult to assess but probably WNL Right Ventricle: Normal size right ventricle cavity Left Atrium: Moderately dilated Right Atrium: Normal r atrium size EF calculated: 33.2% PN 06/10: CHF, not in exacerbation. RISKS: H&P 06/06: PMHx: CHF, HTN. A/P: Sepsis 2/2 LLE cellulitis TREATMENT: pn 06/08: CHF, not in exacerbation. - held torsemide, caution with fluid resuscitation. MAR: Order 06/07: Coreg 25 mg po bid 06/07: Echocardiography Thank you, Es (This form is maintained as a part of the permanent medical record) 2014 [employer]. All Rights Reserved Es Simon RN, BSN [email or web address] Office: [phone] [facility]
[2019-06-10 16:09] LABS: Folate,Hemolysate >620.0 ng/mL (Not Estab.); Hematocrit 31.8 % (34.0-46.6); RBC Folate Test Component Greater than 1950 ng/mL (>498)
--- NOTE | 2019-06-10 17:17 | CON ---
DATE OF CONSULTATION: 06/10/2019 REASON FOR CONSULTATION: Inflammatory process, left leg with bacteremia. HISTORY OF PRESENT ILLNESS: A 38-year-old, first admission to this hospital, who has a history of obesity, cardiomyopathy, and venous insufficiency with recurrent infections in the lower extremities with a prior surgical debridement a few years ago, I believe in [place], [place]. She this time was transferred from a fpc in [facility] because of fever and chills. This was associated with general malaise and worsening erythema in the left leg around a chronic ulcerated region. On arrival, her temperature was 103.8. She did not have much headaches. No visual symptoms, sore throat, odynophagia, or dysphagia. No cough, sputum production, or chest pain. No abdominal pain or diarrhea. No genitourinary symptoms. No joint symptoms. No neurological symptoms. PAST MEDICAL HISTORY: Includes obesity, sleep apnea, prior sepsis, deep vein thrombosis, postphlebitic syndrome, recurrent infections in the lower extremities, venous insufficiency, ulcerated area which required debridement in the past, hyperlipidemia, and pneumonia. ALLERGIES: NONE. FAMILY HISTORY: Noncontributory. SOCIAL HISTORY: Never smoker. No drug use. Has been losing functional status as of lately and has been in nursing homes. I think the plan is for her to remain in one for the time being at least. CURRENT MEDICATIONS LIST: 1. Tylenol. 2. Zovirax. 3. Norvasc. 4. Eliquis. 5. Coreg. 6. Lexapro. 7. Feosol. 8. Zofran. 9. Zosyn. PHYSICAL EXAMINATION: VITAL SIGNS: With a T-max 102.6, now 100.3; blood pressure 150/89; pulse 75; respirations 20; O2 saturation 93% on 2 L nasal cannula. SKIN: Shows the area of erythema in the medial posterior aspect of the left leg surrounding an area of ulceration with a somewhat lozenge-like shape to it. No necrosis is noted. The patient has no lymphadenopathy. Peripheral IV access. She is voiding in the toilet. HEENT: Ocular movements are conjugate. Oral cavity with still quite a few remaining teeth with some decay and gum disease. NECK: Supple. No jugular vein distention or carotid bruits. LUNGS: Symmetric, clear breath sounds. HEART: S1 and S2. Regular rate. Diminished heart sounds. No S3 or S4. ABDOMEN: Soft. Not distended or tender. No ascites. No bladder distention. MUSCULOSKELETAL: No joint inflammatory activity. Pulses are 1+ in dorsalis pedis. She has findings consistent with lymphedema in the lower extremities, which is quite symmetric. NEUROLOGIC: Cognitive function appears to be intact, and she moves extremities equally. LABORATORY DATA: White cell count is 14.8, down to 6.1; hemoglobin 8.6; platelets 101,000; 64% neutrophils. Creatinine was 1.99 on arrival; now, it is up to 2.18. Albumin 3.1. Urinalysis with 7 to 10 wbc's. Hepatitis C and B, syphilis, and HIV serology, negative. Echocardiogram with EF within normal limits, but difficult to assess. No other findings of significance. Soft tissue ultrasound done in the left leg, this is a calf area; there was fluid tracking along fascial planes, but no contained collection to suggest abscess. Bone scan did not show any evidence of osteomyelitis. ASSESSMENT: Obesity, sleep apnea, lymphedema, prior deep venous thrombosis in the lower extremity, now with recurrent episodes of cellulitis. This time, she has bacteremia associated with it due to Klebsiella pneumoniae with a broad susceptibility profile. It does not look like she needs surgical debridement, and we would recommend transitioning to ciprofloxacin and eventual discharge planning, treat her for about 10 to 14 days or however it would take to lead to resolution of the inflammatory process. The patient would be a candidate for chronic compression stockings for secondary prevention or wraps. She may need a compressive dressing until that ulcer heals before the stockings are fitted to her leg. She might have a chronic liver disease from steatohepatitis in view of the chronic changes in the transaminases, might need to workup with imaging study of her liver parenchyma. Job ID: [id number]
[2019-06-11 04:10] VITALS: TEMP 98.8
[2019-06-11 05:42] LABS: #Basophils 0.1 thou/uL (0.0-0.2); #Eosinphils 0.2 thou/uL (0.0-0.7); #Lymphocytes 1.4 thou/uL (1.20-3.40); #Monocytes 0.6 thou/uL (0.11-0.59); #Neutrophils 4.2 thou/uL (1.40-6.50); %Basophils 0.9 % (0.0-1.0); %Eosinophils 2.6 % (0.0-10.0); %Lymphocytes 21.8 % (21.0-51.0); %Monocytes 9.6 % (0.0-10.0); %Neutrophils 65.2 % (42.0-75.0); Hemoglobin 8.3 g/dL (12.0-16.0); Mean Corpuscular HGB CONC 31.1 g/dL (32.0-36.0); Mean Corpuscular Hemoglobin 27.2 pg (27.0-31.0); Mean Corpuscular Volume 87.6 fL (78.0-98.0); Mean Platelet Volume 9.2 fL (7.4-10.4); Platelet Count 134 thou/uL (130-400); RBC Distribution Width 15.4 % (11.5-14.5); Red Blood Cell (RBC) Count 3.03 mill/uL (4.20-5.40); White Blood Cell (WBC) Count 6.5 thou/uL (4.8-10.8)
[2019-06-11 06:13] LABS: Anion Gap 10 mmol/L (10-20); BUN (Urea Nitrogen) 14 mg/dL (7.0-18.7); Calc. Creatinine Clearance 117 mL/min (70-130); Calcium 9.4 mg/dL (7.8-10.44); Carbon Dioxide 24 mmol/L (22-29); Chloride 111 mmol/L (98-107); Estimated GFR-MDRD 36; Glucose 83 mg/dL (70-105); Potassium 4.2 mmol/L (3.5-5.1); Sodium 141 mmol/L (136-145)
--- NOTE | 2019-06-11 06:45 | PDOC.FM ---
- Subjective Subjective: Afebrile overnight. Pt spoke with some emotion and was less monotone today. She can easily get out of bed and get to the commode and toilet by herself, as witnessed this AM. Denies pain. Explained plan of care to her. - Objective MAR Reviewed: Yes Vital Signs & Weight: Vital Signs (12 hours) Temp Pulse Resp BP Pulse Ox 06/11/19 04:00 98.8 F 67 18 133/84 97 06/11/19 01:55 22 H 06/10/19 20:00 98.9 F 88 17 159/83 H 94 L Weight Admit Weight 155.5 kg Weight 155.5 kg I&O: 06/09/19 06/10/19 06/11/19 06:59 06:59 06:59 Intake Total 1680 3120 1250 Output Total 1999 Balance 1680 3120 -750 Result Diagrams: 06/11/19 05:13 06/11/19 05:13 Phys Exam - Physical Examination Constitutional: NAD Respiratory: no wheezing, clear to auscultation bilateral Cardiovascular: RRR (possible 1-2/6 systolic murmur) Gastrointestinal: soft Deviation from normal: LLE wound covering in place, dressing not disturbed Dx/Plan (1) Left leg cellulitis Code(s): L03.116 - CELLULITIS OF LEFT LOWER LIMB Status: Acute (2) History of DVT (deep vein thrombosis) Code(s): Z86.718 - PERSONAL HISTORY OF OTHER VENOUS THROMBOSIS AND EMBOLISM Status: Acute (3) CHF (congestive heart failure) Code(s): I50.9 - HEART FAILURE, UNSPECIFIED Status: Acute (4) HTN (hypertension) Code(s): I10 - ESSENTIAL (PRIMARY) HYPERTENSION Status: Acute (5) Hyperlipidemia Code(s): E78.5 - HYPERLIPIDEMIA, UNSPECIFIED Status: Acute (6) Sepsis Code(s): A41.9 - SEPSIS, UNSPECIFIED ORGANISM Status: Acute (7) Morbid obesity Code(s): E66.01 - MORBID (SEVERE) OBESITY DUE TO EXCESS CALORIES Status: Acute (8) correction resident Code(s): Z59.3 - PROBLEMS RELATED TO LIVING IN RESIDENTIAL INSTITUTION Status : Acute - Plan Plan: 38-year-old female who has been in correction since August when she had debridement of LLE chronic wound, admitted for: Sepsis 2/2 LLE cellulitis without osteomyelitis, improving Klebsiella Pneumoniae Bacteremia, steel-sensitive - no septic shock, fluid resuscitation w/ 2L and fluids w/ 175 mL/hr initially - start vanc, zosyn given x1. Vanc discontinued as cultures resulted in Kleb Pneumo 2/2 + in blood. Sensitivities have resulted: steel-sensitive. - wound care consulted, following - Imaging studies LLE xray, LLE sono not significant for abscess or osteomyelitis. - Osteomyelitis effectively ruled out with 3-phase nuclear scan showing no uptake of contrast into bone. - TTE difficult to assess but no significant thrombi seen. - ID, Dr. Cao consulted. appreciate recs. - D/c zosyn per Nash. Ciprofloxacin 250mg daily started and recommended for 10- 14 days or until inflammation resolves. Also recommends compression stocking or wrap therapy once wound heals to prevent future wounds. Nash also suggested imaging of the liver parenchyma since pt had elevated enzymes on presentation. She does have history of multi-organ failure from sepsis in the past. Hypoxia, acute - on 2 L NC, Usually does not require oxygen during the day. - may be secondary to deconditioning vs obesity hypoventilation syndrome. CHF could be contributing although less likely since she did not appear fluid overloaded. Fluid status difficult to assess due to chronic lymphedema and difficulty auscultated lungs secondary to body habitus. However, the lymphedema has appeared stable and pt has sounded clear on lungs, CXR not overtly apparent for fluid overload. - Pt sleeps on Bipap at night at baseline. - Walking program will continue to work w/ pt and wean O2 as able. Activity, up to chair. - F/U w/ pulmonology outpatient. Hypokalemia, acute on chronic Hypomagnesemia - monitoring, will replete orally - pt takes potassium at home Normocytic Anemia Iron deficiency - Hgb stabilizing. Iron infusion 06/08. - PO ferrous sulfate scheduled BID. Continue as outpatient. 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 Doyle, [place] [facility]. Was told she had heart failure around same time of sepsis episodes in August. NOHEMI on CKD - mother's provided history of pt. Per [facility], pt arrived w/ rec to see a interlocking installer and log chipper operator. - stopped fluids, Creatinine is stabilizing. - Renal US negative for hydronephrosis or obstructive uropathy. No renal masses seen. - FeNa 0.9% which would suggest prerenal etiology, however, pt Creatinine had not improved as rapidly as would be expected with fluids for simply NOHEMI. Likely NOHEMI on CKD. - F/U w/ nephrology outpatient. HSV, oral - fever blister on upper lip. Denies history of genital herpes. Does not take antiviral for herpes. - acyclovir cream not available in hospital, given oral acyclovir. Depression -Constricted affect, pt takes lexapro. Lives at half-way for care of LLE wound. Will assess needs and determine where to dispo pt. -Case mgmt consulted HTN HLD Hx of DVT - home meds may be restarted. Morbid obesity - PT/OT consulted. - Test for Yajaira's disease w/ dexamethasone suppression test is inconclusive at this time. Pt cortisol serum in AM after meds was 2.70 mcg/dL. It is recommended to use 1.80 as the cutoff of upper limit of normal; however, pt may have a physiologic hypercortisolism at this time since 1) she is morbidly obese , and 2) she is under an acute illness requiring hospitalization. Testing would need to be repeated outpatient when pt is feeling better. She may still have some sort of autoimmune issue contributing to her sepsis from her LLE wound. Fluids: LR at 100 mL/hr Code status: full PPx: eliquis Dispo: inpatient medical. Consider return to half-way at [facility] soon. Addendum - Attending - Attending Attestation Date/Time: 06/11/19 2936 I personally evaluated the patient and discussed the management with Dr. Ballard. I agree with the History, Examination, Assessment and Plan documented above with any addition or exceptions noted below. Patient doing well. Plan for abx for her bacteremia has been set by ID and she is afebrile with normal WBC. Her renal function continues to improve. Will work on getting patient back to her facility today as she is stable for discharge .
[2019-06-11] MEDS: Escitalopram Oxalate 20 mg Tablet PO SCH (08:57)
[2019-06-11] MEDS: Acyclovir 400 mg Tablet PO SCH (08:57)
[2019-06-11] MEDS: Potassium Chloride 20 MEQ TAB PO SCH (08:57)
[2019-06-11] MEDS: Amlodipine 5 MG TAB PO SCH (08:58)
[2019-06-11] MEDS: Ferrous Sulfate 325 MG TAB PO SCH (08:59)
[2019-06-11] MEDS: Carvedilol 25 MG TAB PO SCH (08:59)
[2019-06-11] MEDS: Apixaban 5 MG TAB PO SCH (08:59)
[2019-06-11 13:13] VITALS: BP 139/83
--- NOTE | 2019-06-12 09:35 | PQF ---
BEL WORRELL JASON MD [id number] CLINICAL DOCUMENTATION CLARIFICATION FORM: POST DISCHARGE Addendum to original discharge summary date: ____ Late entry note date: __ DATE:06/12/2019 ATTN:TEMO CARL MD Please exercise your independent, professional judgment in responding to the clarification form. Clinical indicators are provided on the bottom of this form for your review Please check appropriate box(s) to clarify if the following diagnosis has been ruled in or ruled out: ATN [ ] Ruled in diagnosis [ ] Continue to treat [ ] Resolved [ ] Ruled out diagnosis [ X ] Cannot rule out diagnosis [ X ] Other diagnosis Chronic kidney disease, previously on dialysis, unknown stage. [ ] Unable to determine For continuity of documentation, please document condition throughout progress notes and discharge summary. Thank You. CLINICAL INDICATORS - SIGNS / SYMPTOMS / LABS NOHEMI,Cr-1.99-Documented in Family medicine H&P on 06/06 by Rubina Larios Sepsis 2/2 LLE cellulitis-Documented in Family medicine H&P on 06/06 by Rubina Larios NOHEMI vs CKD vs ATN,Cr increased to 2.7 this AM-Documented in Family medicine PN on 06/08 by panchito Ballard Creatinine-2.71,2.73,2.22,2.18,1.62-Documented in Laboratory GFR-20,25,36-Documented in Laboratory RISK FACTORS Sepsis 2/2 LLE cellulitis-Documented in Family medicine H&P on 06/06 by Rubina Larios HTN-Documented in Family medicine H&P on 06/06 by Rubina Larios TREATMENTS Monitor fluid status closely-Documented in Family medicine PN on 06/08 by panchito Ballard Urine studies ordered to evaluated for etiology of kidney insult-Documented in Family medicine PN on 06/08 by panchito Ballard Renal ultrasound on 06/08 Lactated ringer's 1000 ml IV-Documented in medication snapshot [employer] 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 All Rights Reserved [email or web address] [not [email or web address]] [email or web address]
== END 2019-06-11 13:48 | DRG 871 ==
LOC: ERS 19:43 → T4-A 20:03
PROVIDERS: ADMIT Family Medicine; ATTEND Family Medicine
DX: A41.9 Sepsis, unspecified organism (principal); N17.0 Acute kidney failure with tubular necrosis; Z68.45 Body mass index [BMI] 70 or greater, adult; L03.116 Cellulitis of left lower limb; I50.22 Chronic systolic (congestive) heart failure; B00.89 Other herpesviral infection; E78.5 Hyperlipidemia, unspecified; I11.0 Hypertensive heart disease with heart failure; F31.9 Bipolar disorder, unspecified; Z86.718 Personal history of other venous thrombosis and embolism; E66.01 Morbid (severe) obesity due to excess calories; E87.6 Hypokalemia; E83.42 Hypomagnesemia; D64.9 Anemia, unspecified; B96.1 Klebsiella pneumoniae [K. pneumoniae] as the cause of diseases classified elsewhere; G47.30 Sleep apnea, unspecified; R09.02 Hypoxemia
CPT/HCPCS: 36415; 76770; 76999; 78315; 80048; 80053; 81001; 82533; 82570; 82607; 82728; 82747; 83036; 83540; 83550; 83605; 83735; 83935; 84100; 84300; 84443; 84703; 85007; 85025; 85027; 85060; 85652; 86140; 86704; 86706; 86780; 86803; 87086; 87340; 87389; 90471; 90686; 93306; 94660; 99285; A9503; G0008; J2543; J2916; J3480; J3490; J8540; Q0162

== ENCOUNTER 2024-02-11 14:21 | Emergency (ER) | payer MEDICARE, OTHER ==
[~2024-02-11 14:21] MED LIST: Iopamidol-370 76% 500 ML MDV (1 ML CHARGE) ONE
[2024-02-11 15:22] LABS: #Basophils 0.05 10x3/uL (0.0-0.2); %Basophils 0.3 % (0.0-1.0); %Eosinophils 0.4 % (0.0-10.0); %Lymphocytes 13.2 % (21.0-51.0); %Monocytes 7.4 % (0.0-10.0); Hematocrit 28.4 % (36.0-47.0); Mean Corpuscular HGB CONC 31.7 g/dL (32.0-36.0); Mean Corpuscular Hemoglobin 26.5 pg (27.0-31.0); Mean Corpuscular Volume 83.8 fL (78.0-98.0); Mean Platelet Volume 10.5 fL (7.4-10.4); Platelet Count 358 10x3/uL (130-400); RBC Distribution Width 15.7 % (11.5-14.5); Red Blood Cell (RBC) Count 3.39 mill/uL (4.20-5.40)
[2024-02-11 15:33] LABS: BHCG - Serum Negative (NEGATIVE); Pregs Control Background? CLEAR/WHITE (CLR/WHITE); Pregs Control Bar Appear? YES (CONTROL BAR)
[2024-02-11 15:42] LABS: ALT (SGPT) 22 U/L (8-55); AST (SGOT) 29 U/L (5-34); Albumin 1.9 g/dL (3.5-5.0); Alkaline Phosphatase 216 U/L (40-110); Anion Gap 20 mmol/L (10-20); BUN (Urea Nitrogen) 20 mg/dL (7.0-18.7); Calc. Creatinine Clearance 0 mL/min (70-130); Calcium 8.2 mg/dL (7.8-10.44); Carbon Dioxide 24 mmol/L (22-29); Chloride 97 mmol/L (98-107); Estimated GFR 34; Glucose 106 mg/dL (70-105); Potassium 3.7 mmol/L (3.5-5.1); Protein, Total 6.9 g/dL (6.0-8.3); Sodium 137 mmol/L (136-145)
[2024-02-11 15:44] LABS: Troponin I Less than 0.010 ng/mL (< 0.028)
== END 2024-02-11 17:40 | disposition home or self-care (01) ==
LOC: ERS 14:21
DX: R06.00 Dyspnea, unspecified (principal); D64.9 Anemia, unspecified; I13.0 Hypertensive heart and chronic kidney disease with heart failure and stage 1 through stage 4 chronic kidney disease, or unspecified chronic kidney disease; N18.9 Chronic kidney disease, unspecified; I50.9 Heart failure, unspecified; Z87.891 Personal history of nicotine dependence
CPT/HCPCS: 36415; 71045; 71275; 80053; 83880; 84484; 84703; 85025; 93005; Q9967